=== PATIENT | female | born 1990 | race Caucasian/White ===

== ENCOUNTER 2016-07-07 22:43 | Emergency (ER) | payer SELFPAY ==
[2016-07-07] MEDS ORDERED: RINGERS SOLUTION,LACTATED 1,000 ML IV ONE (22:48)
--- NOTE | 2016-07-07 23:03 | ER Document Report ---
ED General - General Mode of Arrival: Ambulatory Information source: Patient TRAVEL OUTSIDE OF THE [place] IN LAST 30 DAYS: No - HPI Onset: Other Quality of pain: No pain Pain Level: 0 Similar symptoms previously: Yes Recently seen / treated by doctor: Yes <QUIN ROTH - Last Filed: 07/08/16 05:45> <KIEL GONZALEZ - Last Filed: 07/08/16 06:05> <PAKO SOUZA - Last Filed: 07/08/16 09:47> - General Chief Complaint: ETOH Abuse Stated Complaint: POSSIBLE ETOH Notes: Patient is a 26-year-old female that presents to the emergency department today secondary to heavy EtOH usage and Xanax prior to arrival. According to [facility] records, patient has been seen and evaluated in this ED for overdoses and EtOH usage in the past. Patient is somnolent but arousable. Patient states she had beer and 3 Xanax prior to arrival. Patient states she does not use IV drugs and denies any heroin usage. Patient denies taking any narcotic pain medication tonight. (QUIN ROTH) - Related Data Allergies/Adverse Reactions: No Known Allergies Allergy (Verified 08/23/14 14:53) Past Medical History - General Information source: Patient - Social History Smoking Status: Current Every Day Smoker Cigarette use (# per day): Yes Frequency of alcohol use: Heavy Drug Abuse: Prescription drugs - xanax Family History: Arthritis, DM, Other - lupus Renal/ Medical History: Reports: Hx Ovarian Cysts Psychiatric Medical History: Reports: Hx Anxiety, Hx Depression Past Surgical History: Reports: Hx Section - 2008 - Immunizations Immunizations up to date: Yes Hx Diphtheria, Pertussis, Tetanus Vaccination: Yes - nov 2008 <QUIN ROTH - Last Filed: 07/08/16 05:45> Review of Systems - Review of Systems Constitutional: No symptoms reported EENT: No symptoms reported Cardiovascular: No symptoms reported Respiratory: No symptoms reported Gastrointestinal: No symptoms reported Genitourinary: No symptoms reported Female Genitourinary: No symptoms reported Musculoskeletal: No symptoms reported Skin: No symptoms reported Hematologic/Lymphatic: No symptoms reported Neurological/Psychological: No symptoms reported -: Yes All other systems reviewed and negative <QUIN ROTH - Last Filed: 07/08/16 05:45> Physical Exam <QUIN ROTH - Last Filed: 07/08/16 05:45> <KIEL GONZALEZ - Last Filed: 07/08/16 06:05> <PAKO SOUZA - Last Filed: 07/08/16 09:47> - Vital signs Vitals: BP Pulse Ox 98/73 L 96 07/07/16 22:52 07/07/16 22:52 - Notes Notes: Physical Exam: General: Arouses to sternal rub. Intoxicated. Smells of EtOH. HEENT: Normocephalic. Atraumatic. PERRL. Extraocular movements intact. Oropharynx clear. Neck: Supple. Non-tender. Respiratory: No respiratory distress. Clear and equal breath sounds bilaterally. Cardiovascular: Regular rate and rhythm. Abdominal: Normal Inspection. Non-tender. No distension. Normal Bowel Sounds. Back: Non-tender. No deformity or step off. Extremities: Moves all four extremities. Upper extremities: Normal inspection. Normal ROM. Lower extremities: Normal inspection. No edema. Normal ROM. Neurological: Intoxicated. Cooperates with neuro exam, cranial nerves II-XII grossly intact bilaterally. Psychological: unable to assess Skin: Warm. Dry. Normal color. (IRAQUIN) Course - Laboratory Result Diagrams: 07/07/16 23:26 07/07/16 23:26 <QUIN ROTH - Last Filed: 07/08/16 05:45> - Laboratory Result Diagrams: 07/07/16 23:26 07/07/16 23:26 <KIEL GONZALEZ - Last Filed: 07/08/16 06:05> - Laboratory Result Diagrams: 07/07/16 23:26 07/07/16 23:26 <PAKO SOUZA - Last Filed: 07/08/16 09:47> - Re-evaluation Re-evalutation: 07/08/16 06:04 Patient presented to the emergency Department smelling of alcohol with alcohol intoxication. She said she drinks on a regular basis when necessary liquor also occasionally does the next. Says she is not attempting to hurt herself was aroused on examination throughout her entire visit IV fluids were given. She wakes up with arousal is sleeping. Negative acute labs otherwise. Patient will be signed out to Dr. alexa Burt pending repeat blood alcohol level disposition appropriate ride home. No family members are here present. (KIEL GONZALEZ) 07/08/16 09:46 Patient is awake at this time, she is alert oriented requesting phone call family members she is stable for discharge (PAKO SOUZA) - Vital Signs Vital signs: Temp Pulse Resp BP Pulse Ox 98.0 F 81 17 98/68 L 97 07/07/16 23:01 07/08/16 04:06 07/08/16 04:06 07/08/16 04:06 07/08/16 04:06 - Laboratory Laboratory results interpreted by me: 07/07/16 23:26 Sodium 149.3 H Chloride 109 H Salicylates < 1.0 L Acetaminophen < 10 L Serum Alcohol 342 H* Discharge <QUIN ROTH - Last Filed: 07/08/16 05:45> <KIEL GONZALEZ - Last Filed: 07/08/16 06:05> <PAKO SOUZA - Last Filed: 07/08/16 09:47> - Discharge Clinical Impression: alcoholintoxication
[2016-07-07 23:34] LABS: APPEARANCE,URINE CLEAR; BILIRUBIN,URINE NEGATIVE (NEGATIVE); GLUCOSE, URINE NEGATIVE (NEGATIVE); KETONES,URINE NEGATIVE (NEGATIVE); LEUKOCYTE ESTERASE,URINE NEGATIVE (NEGATIVE); NITRITE,URINE NEGATIVE (NEGATIVE); PROTEIN,URINE NEGATIVE (NEGATIVE); URINE SPECIFIC GRAVITY 1.005; UROBILINOGEN,URINE NEGATIVE mg/dL (<2.0)
[2016-07-07 23:38] LABS: ABSOLUTE BASOPHILS # (AUTO) 0.1 10^3/uL (0.0-0.2); ABSOLUTE EOSINOPHILS # (AUTO) 0.1 10^3/uL (0.0-0.6); ABSOLUTE MONOCYTES (AUTO) 0.4 10^3/uL (0.1-1.4); BASOPHILS % (AUTO) 0.7 % (0-2); EOSINOPHILS % (AUTO) 1.2 % (0-6); HEMATOCRIT 43.5 % (36.0-47.0); HEMOGLOBIN 14.8 g/dL (12.0-15.5); HGB HCT DIFFERENCE 0.9; LYMPHOCYTES % (AUTO) 30.8 % (13-45); MEAN CORPUSCULAR HEMOGLOBIN 32.8 pg (27.0-33.4); MEAN CORPUSCULAR HGB CONC 34.1 g/dL (32.0-36.0); MEAN CORPUSCULAR VOLUME 96 fl (80-97); MONOCYTES % (AUTO) 4.5 % (3-13); RED BLOOD COUNT 4.52 10^6/uL (3.72-5.28); RED CELL DISTRIBUTION WIDTH 13.2 % (11.5-14.0); SEGMENTED NEUTROPHILS % (AUTO) 62.8 % (42-78); WHITE BLOOD COUNT 9.6 10^3/uL (4.0-10.5)
[2016-07-07 23:53] LABS: URINE BARBITURATES SCREEN NEGATIVE; URINE METHADONE SCREEN NEGATIVE; URINE OPIATES LOW NEGATIVE; URINE PHENCYCLIDINE SCREEN NEGATIVE
[2016-07-07 23:58] LABS: ANION GAP 15 (5-19); BLOOD UREA NITROGEN 10 mg/dL (7-20); CALCIUM 9.3 mg/dL (8.4-10.2); CARBON DIOXIDE 25 mmol/L (22-30); CHLORIDE 109 mmol/L (98-107); CREATININE RESULT 0.57 mg/dL (0.52-1.25); GLUCOSE 105 mg/dL (75-110); POTASSIUM 4.2 mmol/L (3.6-5.0); SODIUM 149.3 mmol/L (137-145)
[2016-07-08 00:09] LABS: ALCOHOL 342 mg/dL (NONE DETECTED)
[2016-07-08 04:07] VITALS: BP 98/68
--- NOTE | 2016-07-08 09:14 | EKG REPORT ---
SEVERITY:- OTHERWISE NORMAL ECG - SINUS RHYTHM BORDERLINE RIGHT AXIS DEVIATION : Confirmed by: Eric Ba MD 08-Jul-2016 09:14:00
== END 2016-07-08 10:16 | disposition home or self-care (01) ==
LOC: ER 22:43
DX: F10.129 Alcohol abuse with intoxication, unspecified (principal); R40.0 Somnolence; F17.210 Nicotine dependence, cigarettes, uncomplicated
CPT/HCPCS: 93005; 99281; 51701; 36415; 80307 ×4; 85025; 81025; 80048; 81001; 93010; J7120

== ENCOUNTER 2016-07-26 22:24 | Emergency (ER) | payer OTHER ==
[2016-07-26] MEDS ORDERED: LIDOCAINE 1% INJ-PF (10 MG/ML) 30 ML SDV INJ ONE (22:29)
[2016-07-26] MEDS ORDERED: DIPH/PERTUSS(ACELL)/TETANUS VAC/PF 0.5 ML SYR (>=10YO) IM ONE (22:34)
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
[2016-07-26] MEDS ORDERED: HYDROCODONE/ACETAMINOPHEN 5-325 MG TABLET PO ONE (23:00)
--- NOTE | 2016-07-26 23:38 | RADIOLOGY REPORT (SQ) ---
EXAM DESCRIPTION: RIBS RIGHT W/PA CHEST COMPLETED DATE/TIME: 07/26/2016 11:14 pm REASON FOR STUDY: trauma COMPARISON: None. TECHNIQUE: Frontal view of the chest and additional views of the right ribs acquired. NUMBER OF VIEWS: Three view. LIMITATIONS: None. FINDINGS: FRONTAL CXR: No pneumothorax. No pleural effusion. No atelectasis or infiltrates. RIBS: No displaced rib fractures. No lytic or blastic bony lesions. OTHER: No other significant finding. IMPRESSION: NO PNEUMOTHORAX. NO DISPLACED RIB FRACTURES. COMMENT: SITE OF TRAUMA/COMPLAINT MARKED/STAMP COMPLETED: No TECHNICAL DOCUMENTATION: JOB ID: [id number] [employer]- All Rights Reserved
--- NOTE | 2016-07-26 23:40 | RADIOLOGY REPORT (SQ) ---
EXAM DESCRIPTION: CT HEAD WITHOUT COMPLETED DATE/TIME: 07/26/2016 11:25 pm REASON FOR STUDY: trauma COMPARISON: None. TECHNIQUE: Axial images acquired through the brain without intravenous contrast. Images reviewed wi th bone, brain and subdural windows. Images stored on PACS. All CT scanners at this facility use dose modulation, iterative reconstruction, and/or weight based d osing when appropriate to reduce radiation dose to as low as reasonably achievable (ALARA). [facility]: Dose Right [facility]: CareDose [facility]: Dose Right [facility]: Teradose 4D [facility]: [employer] RADIATION DOSE: 64.61 mGy. LIMITATIONS: None. FINDINGS: VENTRICLES: Normal size and contour. CEREBRUM: No masses. No hemorrhage. No midline shift. Normal martin/white matter differentiation. N o evidence for acute infarction. CEREBELLUM: No masses. No hemorrhage. No alteration of density. No evidence for acute infarction. EXTRAAXIAL SPACES: No fluid collections. No masses. ORBITS AND GLOBE: No intra- or extraconal masses. Normal contour of globe without masses. CALVARIUM: No fracture. PARANASAL SINUSES: No fluid or mucosal thickening. SOFT TISSUES: No mass or hematoma. OTHER: No other significant finding. IMPRESSION: No acute intracranial finding. TECHNICAL DOCUMENTATION: JOB ID: [id number] Quality ID # [id number]: Final reports with documentation of one or more dose reduction techniques (e.g., Au tomated exposure control, adjustment of the mA and/or kV according to patient size, use of iterative reconstruction technique) 2010 [employer]- All Rights Reserved
--- NOTE | 2016-07-26 23:46 | RADIOLOGY REPORT (SQ) ---
EXAM DESCRIPTION: CT FACIAL AREA WITHOUT COMPLETED DATE/TIME: 07/26/2016 11:25 pm REASON FOR STUDY: trauma COMPARISON: None. TECHNIQUE: Noncontrasted images through the facial bones and orbits windowed for bone and soft tissu e. Additional coronal and sagittal reconstructed images reviewed. All images stored on PACS. All CT scanners at this facility use dose modulation, iterative reconstruction, and/or weight based d osing when appropriate to reduce radiation dose to as low as reasonably achievable (ALARA). [facility]: Dose Right [facility]: CareDose [facility]: Dose Right [facility]: Teradose 4D [facility]: [employer] RADIATION DOSE: 30.40 mGy. LIMITATIONS: None. FINDINGS: FACIAL BONES: No fracture or bone lesion. ORBITS: Intact. No fracture. Symmetric intact globes and retroorbital soft tissues. PARANASAL SINUSES: Clear. No significant mucosal thickening, mass or fluid. No nasal polyps. Maxill everett sinus outlets are patent. SOFT TISSUES: No mass or edema. INFERIOR BRAIN: Limited view. No acute findings. OTHER: No other significant finding. IMPRESSION: No fracture. TECHNICAL DOCUMENTATION: JOB ID: [id number] Quality ID # [id number]: Final reports with documentation of one or more dose reduction techniques (e.g., Au tomated exposure control, adjustment of the mA and/or kV according to patient size, use of iterative reconstruction technique) 2010 [employer] All Rights Reserved
--- NOTE | 2016-07-26 23:48 | RADIOLOGY REPORT (SQ) ---
EXAM DESCRIPTION: CT CERVICAL SPINE WITHOUT COMPLETED DATE/TIME: 07/26/2016 11:25 pm REASON FOR STUDY: trauma COMPARISON: None. TECHNIQUE: Axial images acquired through the cervical spine without intravenous contrast. Images re viewed with lung, soft tissue and bone windows. Reconstructed coronal and sagittal MPR images review ed. Images stored on PACS. All CT scanners at this facility use dose modulation, iterative reconstruction, and/or weight based d osing when appropriate to reduce radiation dose to as low as reasonably achievable (ALARA). [facility]: Dose Right [facility]: CareDose [facility]: Dose Right [facility]: Teradose 4D [facility]: [employer] RADIATION DOSE: 9.84 mGy. LIMITATIONS: None. FINDINGS: ALIGNMENT: Anatomic. MINERALIZATION: Normal. VERTEBRAL BODIES: No fractures or dislocation. DISCS: No significant disc disease. FACETS, LATERAL MASSES, POSTERIOR ELEMENTS: No fractures. No dislocation. No acute findings. HARDWARE: None in the spine. VISUALIZED RIBS: No fractures. LUNG APICES AND SOFT TISSUES: No significant or acute findings. OTHER: No other significant finding. IMPRESSION: NO ACUTE FINDINGS IN THE CERVICAL SPINE. TECHNICAL DOCUMENTATION: JOB ID: [id number] Quality ID # [id number]: Final reports with documentation of one or more dose reduction techniques (e.g., Au tomated exposure control, adjustment of the mA and/or kV according to patient size, use of iterative reconstruction technique) 2010 [employer]- All Rights Reserved
[2016-07-26] MEDS ORDERED: HYDROCODONE/ACETAMINOPHEN 5-325 MG 6 TAB/DSPK PO PRN (23:58)
[2016-07-27 00:42] VITALS: BP 116/75
== END 2016-07-27 00:30 | disposition home or self-care (01) ==
LOC: ER 22:24
PROC: 0CQ0XZZ Repair Upper Lip, External Approach (ICD-10-PCS; principal; 2016-07-26)
DX: S01.511A Laceration without foreign body of lip, initial encounter (principal); V03.90XA Pedestrian on foot injured in collision with car, pick-up truck or van, unspecified whether traffic or nontraffic accident, initial encounter; Y93.01 Activity, walking, marching and hiking; R55 Syncope and collapse; R51 Headache; R22.0 Localized swelling, mass and lump, head; M54.2 Cervicalgia; R07.81 Pleurodynia; Z88.8 Allergy status to other drugs, medicaments and biological substances
CPT/HCPCS: 99284; 90471; 71101; 70450; 70486; 72125; 90715; 12011; J3490

== ENCOUNTER 2016-10-10 23:46 | Emergency (ER) | payer SELFPAY | END 2016-10-11 00:05 | disposition left against medical advice (07) | LOC: ER 23:46 | DX: Z53.21 Procedure and treatment not carried out due to patient leaving prior to being seen by health care provider (principal) ==

== ENCOUNTER 2016-10-27 01:20 | Emergency (ER) | payer SELFPAY ==
[2016-10-27 01:31] VITALS: BP 117/76
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
== END 2016-10-27 02:10 | disposition home or self-care (01) ==
LOC: ER 01:20
DX: S89.91XA Unspecified injury of right lower leg, initial encounter (principal); S30.811A Abrasion of abdominal wall, initial encounter; S40.811A Abrasion of right upper arm, initial encounter; R59.1 Generalized enlarged lymph nodes; J02.9 Acute pharyngitis, unspecified; V87.8XXA Person injured in other specified noncollision transport accidents involving motor vehicle (traffic), initial encounter
CPT/HCPCS: 99282

== ENCOUNTER 2016-12-13 19:40 | Emergency (ER) | payer SELFPAY ==
[2016-12-13] MEDS ORDERED: DIPHENHYDRAMINE HCL 50 MG/ML VIAL IM ONE (20:21)
[2016-12-13] MEDS ORDERED: HALOPERIDOL LACTATE INJ 5 MG/1 ML VIAL IM ONE (20:21)
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
== END 2016-12-13 21:39 ==
LOC: ER 19:40
DX: S00.01XA Abrasion of scalp, initial encounter (principal); Y35.893A Legal intervention involving other specified means, suspect injured, initial encounter; Y93.89 Activity, other specified; F17.200 Nicotine dependence, unspecified, uncomplicated; Z88.8 Allergy status to other drugs, medicaments and biological substances
CPT/HCPCS: 99283

== ENCOUNTER 2017-01-18 02:01 | Emergency (ER) | payer SELFPAY ==
[2017-01-18] MEDS ORDERED: ZIPRASIDONE MESYLATE INJ/PF 20 MG SDV IM ONE (02:11)
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
--- NOTE | 2017-01-18 03:08 | RADIOLOGY REPORT (SQ) ---
EXAM DESCRIPTION: CT HEAD WITHOUT CLINICAL HISTORY: Head Trauma COMPARISON: 07/26/2016 TECHNIQUE: Axial CT of the head obtained from the skull apex to the skull base without contrast. FINDINGS: No acute intracranial hemorrhage identified. No mass, mass effect, shift of the midline, abnormal extra-axial fluid collection or CT evidence of acute ischemic change identified. The ventricular system is unremarkable. No acute abnormalities of the supratentorial white matter, basal ganglia, cerebellum, or brainstem. The visualized paranasal sinuses and the mastoids are clear. Contusion in the left frontal scalp subcutaneous soft tissues. No skull fracture identified. Visualized orbits and globes are unremarkable. DLP: 1083.99 mGy-cm IMPRESSION: 1. No acute intracranial abnormality identified. This exam was performed according to our departmental dose-optimization program, which includes automated exposure control, adjustment of the mA and/or kV according to patient size and/or use of iterative reconstruction technique.
== END 2017-01-18 04:30 ==
LOC: ER 02:01
DX: S09.90XA Unspecified injury of head, initial encounter (principal); F91.9 Conduct disorder, unspecified; Z79.899 Other long term (current) drug therapy; W22.8XXA Striking against or struck by other objects, initial encounter
CPT/HCPCS: 99285; 96372; 70450; J3486

== ENCOUNTER 2017-08-18 00:14 | Emergency (ER) | payer SELFPAY ==
--- NOTE | 2017-08-18 00:35 | ER Document Report ---
ED Substance Abuse / Acc. OD - General Chief Complaint: Drug Abuse Stated Complaint: NAUSEA Time Seen by Provider: 08/18/17 00:27 Notes: The patient is a 27-year-old female, polysubstance abuser, presents by EMS after she was using methamphetamines and alcohol. According to EMS, she was passed out when the call was made, but was awake when EMS arrived. Patient is having some nausea but denies any other complaints. Patient admits to drinking alcohol tonight and using methamphetamine. She denies suicidal ideation, homicidal ideation, abdominal pain, fevers, back pain or head injury. TRAVEL OUTSIDE OF THE [place] IN LAST 30 DAYS: No - Related Data Allergies/Adverse Reactions: ondansetron [From Zofran (as hydrochloride)] Allergy (Verified 07/26/16 22:44) Past Medical History - General Information source: Patient, Emergency Med Personnel - Social History Smoking Status: Unknown if Ever Smoked Frequency of alcohol use: Heavy Drug Abuse: Methamphetamine Family History: Arthritis, DM, Other - lupus Renal/ Medical History: Reports: Hx Ovarian Cysts. Denies: Hx Peritoneal Dialysis Psychiatric Medical History: Reports: Hx Anxiety, Hx Depression Past Surgical History: Reports: Hx Section - 2008 - Immunizations Immunizations up to date: Yes Hx Diphtheria, Pertussis, Tetanus Vaccination: Yes - nov 2008 Review of Systems - Review of Systems Notes: REVIEW OF SYSTEMS: CONSTITUTIONAL: -fevers, -chills EENT: -eye pain, -difficulty swallowing, -nasal congestion CARDIOVASCULAR: -chest pain, -syncope. RESPIRATORY: -cough, -SOB GASTROINTESTINAL: -abdominal pain, -nausea, -vomiting, -diarrhea GENITOURINARY: -dysuria, -hematuria MUSCULOSKELETAL: -back pain, -neck pain SKIN: -rash or skin lesions. HEMATOLOGIC: -easy bruising or bleeding. LYMPHATIC: -swollen, enlarged glands. NEUROLOGICAL: -altered mental status, -headache, -neurologic symptoms PSYCHIATRIC: -anxiety, -depression, +substance abuse, +ETOH abuse ALL OTHER SYSTEMS REVIEWED AND NEGATIVE. Physical Exam - Notes Notes: PHYSICAL EXAMINATION: GENERAL: Well-appearing, well-nourished and in no acute distress. HEAD: Atraumatic, normocephalic. EYES: Pupils equal round and reactive to light, extraocular movements intact, sclera anicteric, conjunctiva are normal. ENT: nares patent, oropharynx clear without exudates. Moist mucous membranes. NECK: Normal range of motion, supple without lymphadenopathy LUNGS: Breath sounds clear to auscultation bilaterally and equal. No wheezes rales or rhonchi. HEART: Regular rate and rhythm without murmurs ABDOMEN: Soft, nontender, normoactive bowel sounds. No guarding, no rebound. No masses appreciated. EXTREMITIES: Normal range of motion, no pitting or edema. No cyanosis. NEUROLOGICAL: Cranial nerves grossly intact. Normal speech, normal gait. Normal sensory and motor exams. PSYCH: Angry mood. SKIN: Warm, Dry, normal turgor, no rashes or lesions noted. Course - Re-evaluation Re-evalutation: Patient's mental status is back to baseline. She admits to using methamphetamine and drinking large amount of alcohol tonight. Patient's Accu- Chek was 83 by EMS. Instructed her she can be discharged once she has a ride home. Provided her with drug counseling information. Discharge - Discharge Clinical Impression: Methamphetamine abuse Alcohol intoxication Qualifiers: Complication of substance-induced condition: uncomplicated Qualified Code(s): F10.920 - Alcohol use, unspecified with intoxication, uncomplicated Condition: Stable Additional Instructions: ACUTE ALCOHOL INTOXICATION and ALCOHOL ABUSE: Your evaluation revealed very high levels of alcohol. You can from drinking a large amount of alcohol rapidly! Further, there's the risk of falls , traffic accidents, and fights. A high portion (about 50 percent) of the serious injuries seen in hospital emergency rooms are caused by alcohol. Alcohol overdosage is usually due to an underlying emotional or psychiatric problem. You may benefit from counselling. If "binge" drinking is an ongoing problem for you, or if you drink ANY AMOUNT of alcohol EVERY day, you most likely have a tendency to alcoholism. You should avoid alcohol totally. We can refer you for treatment. Persons with alcohol problems are often also prone to other addictions -- you should discuss any use of medications or drugs with the doctor. You should be watched at home for the next several hours by someone who has not been drinking. Get extra fluids for the next 24 hours. Call the doctor if there is repeated vomiting, increasing headache, decreasing level of alertness, or any other worsening. CHRONIC ALCOHOLISM and ALCOHOL ABUSE: Your evaluation reveals evidence of chronic alcoholism, an addiction to alcohol. The tendency to alcoholism may be inherited. Chronic use of alcohol weakens muscles, causes fatty deposits in the liver , damages the stomach, makes you more prone to infections, and can cause defects in unborn children. In the long run, brain atrophy and cirrhosis of the liver result. You are also at greater risk for certain types of cancer, such as cancer of the mouth, throat, stomach, and liver. Counselling services are available to help you. In-hospital treatment programs often help. Support groups such as Alcoholics Anonymous can be very useful in beating this addiction. Your physician can make a referral for you. As alcoholics often are prone to other addictions, you should discuss your use of any other medications with the doctor. AMPHETAMINE / METHAMPHETAMINE ABUSE: Amphetamines are addicting stimulants. Amphetamines overstimulate the nervous system and give a false feeling of power and mastery. These drugs may be obtained as prescription pills for weight loss, narcolepsy, or attention- deficit disorder. More often they're bought as an illegal street drug, methamphetamine (crank, crystal, speed). Using amphetamines repeatedly can lead to serious medical problems including malnutrition, severe depression, and paranoia. It can take increasing amounts to feel good. Eventually, there will be a "burn out." When you go off amphetamines there is a period of depression that may last for weeks or even months. High doses of amphetamines can cause seizures, confusion, hallucinations, delusions, high blood pressure, muscle damage, heart damage, or sudden . Many times these deadly complications occur even with "normal" doses. Injection of amphetamines is risky for developing abscesses, endocarditis ( heart infection), pneumonia, and AIDS. Withdrawal from amphetamines often causes anxiety, depression, and drug cravings. Some users become paranoid and psychotic. There may be cramps, nausea , and vomiting. Many treatment programs are available, but you must make the decision to quit. Medication can be prescribed to control the symptoms of amphetamine toxicity (beta blockers or benzodiazepines). Withdrawal symptoms may require tranquilizers. OVERDOSE / INGESTION: You have taken more medication than you should have. After your evaluation and care, it is felt that your overdose is not likely to be harmful or of any significant consequences to you and you are being discharged. In the future, you should be careful not to take more medications than what is prescribed for you. Although your overdose does not seem to be of any danger to you at this time, if you develop any unusual or unexpected symptoms after your discharge, you should return to the Emergency Department immediately for re-evaluation. INSTRUCTIONS FOR HOME CARE FOLLOWING DRUG OVERDOSAGE: The doctor feels it's safe for you to go home. You will need to be observed. If charcoal and a laxative was given to you, expect some loose black stools soon. Take no medications unless approved by a physician, including alcohol. If drowsy, lie on your stomach or side for sleeping to avoid aspiration if vomiting occurs. Take only liquids by mouth until there is no more nausea. FOR THE OBSERVER: Observe the patient for the next 24 hours and call or go to the hospital if any of the following are noted: prolonged or repeated vomiting, difficulty in arousing, convulsions (seizures or fits), fever, persistent cough, breathing that is too slow or too rapid, or confused or bizarre behavior. If a counselling visit has been arranged, make sure the patient attends. Call the physician or poison control if you have questions. FOLLOW-UP CARE: If you have been referred to a physician for follow-up care, call the physician s office for an appointment as you were instructed or within the next two days. If you experience worsening or a significant change in your symptoms, notify the physician immediately or return to the Emergency Department at any time for re-evaluation. Forms: Elevated Blood Pressure Referrals: [facility] [Outside] - Follow up as needed
[2017-08-18 05:53] VITALS: BP 103/66
== END 2017-08-18 05:52 | disposition home or self-care (01) ==
LOC: ER 00:14
DX: F15.10 Other stimulant abuse, uncomplicated (principal); F10.920 Alcohol use, unspecified with intoxication, uncomplicated; R11.0 Nausea
CPT/HCPCS: 99284

== ENCOUNTER 2018-07-11 13:22 | Emergency (ER) | payer SELFPAY ==
--- NOTE | 2018-07-11 14:44 | ER Document Report ---
ED Medical Screen (RME) - General Chief Complaint: Abdominal Pain Stated Complaint: ABDOMINAL PAIN Time Seen by Provider: 07/11/18 14:41 Mode of Arrival: Ambulatory Information source: Patient Notes: Patient presents complaining of left-sided abdominal pain that started to the left upper quadrant radiates to the left lower quadrant and now goes across the lower pelvic area. Patient does report nausea vomiting and diarrhea. Patient does report some dysuria symptoms as well as vaginal bleeding. Patient states she recently had a positive home test as well. I have greeted and performed a rapid initial assessment of this patient. A comprehensive ED assessment and evaluation of the patient, analysis of test results and completion of the medical decision making process will be conducted by additional ED providers. TRAVEL OUTSIDE OF THE [place] IN LAST 30 DAYS: No - Related Data Allergies/Adverse Reactions: bee venom protein (honey bee) Allergy (Verified 07/11/18 13:41) Sulfa (Sulfonamide Antibiotics) Allergy (Verified 07/11/18 14:42) Past Medical History - Social History Chew tobacco use (# tins/day): No Frequency of alcohol use: None Drug Abuse: None Renal/ Medical History: Reports: Hx Ovarian Cysts. Denies: Hx Peritoneal Dialysis Psychiatric Medical History: Reports: Hx Anxiety, Hx Depression Past Surgical History: Reports: Hx Section - 2008 - Immunizations Immunizations up to date: Yes Hx Diphtheria, Pertussis, Tetanus Vaccination: Yes - nov 2008 Physical Exam - Vital signs Vitals: Temp Pulse Resp BP Pulse Ox 98.1 F 76 18 112/67 100 07/11/18 14:10 07/11/18 14:10 07/11/18 14:10 07/11/18 14:10 07/11/18 14:10 - Abdominal Tenderness: Tender - Lower pelvic Course - Vital Signs Vital signs: Temp Pulse Resp BP Pulse Ox 98.1 F 76 18 112/67 100 07/11/18 14:10 07/11/18 14:10 07/11/18 14:10 07/11/18 14:10 07/11/18 14:10
[2018-07-11 15:31] LABS: APPEARANCE,URINE SLIGHTLY-CLOUDY; BILIRUBIN,URINE NEGATIVE (NEGATIVE); COLOR,URINE YELLOW; GLUCOSE, URINE NEGATIVE (NEGATIVE); KETONES,URINE TRACE mg/dL (NEGATIVE); LEUKOCYTE ESTERASE,URINE NEGATIVE (NEGATIVE); NITRITE,URINE NEGATIVE (NEGATIVE); PROTEIN,URINE NEGATIVE (NEGATIVE); URINE SPECIFIC GRAVITY 1.011; UROBILINOGEN,URINE NEGATIVE mg/dL (<2.0)
[2018-07-11 15:33] LABS: ABSOLUTE LYMPHOCYTES (AUTO) 1.3 10^3/uL (0.5-4.7); ABSOLUTE MONOCYTES (AUTO) 0.4 10^3/uL (0.1-1.4); ABSOLUTE NEUT (AUTO) 6.9 10^3/uL (1.7-8.2); BASOPHILS % (AUTO) 0.5 % (0-2); EOSINOPHILS % (AUTO) 0.4 % (0-6); HEMATOCRIT 38.2 % (36.0-47.0); HEMOGLOBIN 12.6 g/dL (12.0-15.5); LYMPHOCYTES % (AUTO) 15.4 % (13-45); MEAN CORPUSCULAR HEMOGLOBIN 28.6 pg (27.0-33.4); MEAN CORPUSCULAR HGB CONC 33.1 g/dL (32.0-36.0); MEAN CORPUSCULAR VOLUME 86 fl (80-97); MONOCYTES % (AUTO) 5.1 % (3-13); PLATELET COUNT 283 10^3/uL (150-450); RED BLOOD COUNT 4.42 10^6/uL (3.72-5.28); RED CELL DISTRIBUTION WIDTH 16.1 % (11.5-14.0); SEGMENTED NEUTROPHILS % (AUTO) 78.6 % (42-78); TOTAL CELLS COUNTED % (AUTO) 100 %; WHITE BLOOD COUNT 8.8 10^3/uL (4.0-10.5)
[2018-07-11 15:54] LABS: ALANINE AMINOTRANSFERASE 23 U/L (9-52); ALBUMIN 4.4 g/dL (3.5-5.0); ALKALINE PHOSPHATASE 115 U/L (38-126); ANION GAP 11 (5-19); ASPARTATE AMINO TRANSFERASE 23 U/L (14-36); BILIRUBIN,DIRECT 0.2 mg/dL (0.0-0.4); BILIRUBIN,TOTAL 0.5 mg/dL (0.2-1.3); BLOOD UREA NITROGEN 6 mg/dL (7-20); CALCIUM 9.9 mg/dL (8.4-10.2); CARBON DIOXIDE 25 mmol/L (22-30); CHLORIDE 102 mmol/L (98-107); GLUCOSE 96 mg/dL (75-110); POTASSIUM 4.4 mmol/L (3.6-5.0); SODIUM 138.1 mmol/L (137-145); TOTAL PROTEIN 7.8 g/dL (6.3-8.2)
[2018-07-11] MEDS ORDERED: ACETAMINOPHEN 325 MG TABLET PO ONE (16:22)
--- NOTE | 2018-07-11 18:21 | RADIOLOGY REPORT (SQ) ---
EXAM DESCRIPTION: U/S OB TRANSVAGINAL W/O DOP COMPLETED DATE/TIME: 07/11/2018 6:06 pm REASON FOR STUDY: pelvic pain COMPARISON: None. TECHNIQUE: Transvaginal static and realtime grayscale images acquired of the pelvis. Additional demetra cted spectral and color Doppler images recorded. All images stored on PACs. [facility] CLINICAL DATES: LMP unknown LIMITATIONS: None. FINDINGS: There is no identifiable intrauterine gestation. UTERUS: No masses or anomalies. 8.7 x 4.5 x 5.5 cm. Endometrium is prominent. CERVICAL LENGTH: 2.4 cm. Closed. RIGHT ADNEXA: Normal ovary with normal vascular flow. 2.5 x 2 x 2 cm. No adnexal free fluid. No adnexal masses. LEFT ADNEXA: Normal ovary with normal vascular flow. 3.2 x 2.4 x 3.4 cm. There is a definable compl ex area in the left ovary that measures 17 x 21 x 16 mm. No adnexal free fluid. No adnexal masses. FREE FLUID: None. OTHER: No other significant finding. IMPRESSION: There is no intrauterine gestation. Follow-up as clinically indicated. There is a small complex mass associated with the left ovary. Nonspecific finding. May represent an involuting cyst. TECHNICAL DOCUMENTATION: JOB ID: [id number] [employer]- All Rights Reserved rev Reading location - IP/workstation name: [email or web address]
[2018-07-11 18:29] LABS: CHLAM PCR NOT DETECTED (NOT DETECT)
[2018-07-11 18:47] LABS: GON PCR NOT DETECTED (NOT DETECT)
--- NOTE | 2018-07-11 19:32 | ER Document Report ---
ED General - General Chief Complaint: Abdominal Pain Stated Complaint: ABDOMINAL PAIN Time Seen by Provider: 07/11/18 14:41 Mode of Arrival: Ambulatory TRAVEL OUTSIDE OF THE [place] IN LAST 30 DAYS: No - HPI Notes: Patient is a 28-year-old female, G2, P1 who presents to the emergency department for evaluation of left lower quadrant pain. It started earlier today. She is had nausea with multiple episodes of emesis. Normal bowel movements. She states that she took a home test last week and it was positive. She has not called her OB for an appointment. She states her last menstrual period Was approximately 2 months ago. She describes her pain is sharp and stabbing, nothing seems to make it better or worse. Normal appetite. Since arriving here she states she started having some dark brown vaginal bleeding. It was much crt than normal menstruation And has resolved by the time of my evaluation. - Related Data Allergies/Adverse Reactions: bee venom protein (honey bee) Allergy (Verified 07/11/18 13:41) Sulfa (Sulfonamide Antibiotics) Allergy (Verified 07/11/18 14:42) Past Medical History - General Information source: Patient - Social History Smoking Status: Current Every Day Smoker Chew tobacco use (# tins/day): No Frequency of alcohol use: None Drug Abuse: None Family History: Arthritis, DM, Other - lupus Patient has suicidal ideation: No Patient has homicidal ideation: No Renal/ Medical History: Reports: Hx Ovarian Cysts. Denies: Hx Peritoneal Dialysis Psychiatric Medical History: Reports: Hx Anxiety, Hx Depression Past Surgical History: Reports: Hx Section - 2008 - Immunizations Immunizations up to date: Yes Hx Diphtheria, Pertussis, Tetanus Vaccination: Yes - nov 2008 Review of Systems - Review of Systems Constitutional: No symptoms reported EENT: No symptoms reported Cardiovascular: No symptoms reported Respiratory: No symptoms reported Gastrointestinal: See HPI Genitourinary: No symptoms reported Female Genitourinary: See HPI Musculoskeletal: No symptoms reported Skin: No symptoms reported Neurological/Psychological: No symptoms reported Physical Exam - Vital signs Vitals: Temp Pulse Resp BP Pulse Ox 98.1 F 76 18 112/67 100 07/11/18 14:10 07/11/18 14:10 07/11/18 14:10 07/11/18 14:10 07/11/18 14:10 - Notes Notes: Vital signs reviewed, please refer to chart. Head is normocephalic, atraumatic. Pupils equal round, reactive to light. Neck is supple without meningismus. Heart is regular rate and rhythm. Lungs are clear to auscultation bilaterally. Abdomen is soft, nontender, normoactive bowel sounds throughout. Extremities without cyanosis, clubbing. Posterior calves are nontender. Peripheral pulses are equal. Skin is warm and dry. Patient is awake, alert, neurological exam is nonfocal. Course - Re-evaluation Re-evalutation: 07/11/18 19:29 Patient presented to the emergency department for evaluation. Laboratory investigations did reveal a , but her quant was just over 250. Certainly she is not 2 months at this time. I expanded the patient that multiple etiologies could be responsible for her pain as well as her test findings. She certainly could have a very early intrauterine , could be having a miscarriage, or certainly could still have an ectopic . She does need repeat laboratory investigations as well as repeat ultrasounds. She voiced understanding to this. She is told to follow complete pelvic rest instructions. She is to follow-up with gynecology, I will go ahead and refer her to our OB on-call. She is to return to the emergency department with worsening or new concerning symptoms of any sort. - Vital Signs Vital signs: Temp Pulse Resp BP Pulse Ox 98.1 F 76 18 112/67 100 07/11/18 14:10 07/11/18 14:10 07/11/18 14:10 07/11/18 14:10 07/11/18 14:10 - Laboratory Result Diagrams: 07/11/18 15:03 07/11/18 15:03 Laboratory results interpreted by me: 07/11/18 07/11/18 07/11/18 15:03 15:03 15:03 RDW 16.1 H Seg Neutrophils % 78.6 H BUN 6 L Serum HCG, Qual POSITIVE H Beta HCG, Quant Urine Ketones Urine Blood 07/11/18 07/11/18 15:03 15:03 RDW Seg Neutrophils % BUN Serum HCG, Qual Beta HCG, Quant 255.38 H Urine Ketones TRACE H Urine Blood LARGE H Discharge - Discharge Clinical Impression: Vaginal bleeding during , Left lower quadrant abdominal pain affecting Condition: Stable Disposition: HOME, SELF-CARE Instructions: Abdominal Pain ([facility]), Vaginal Bleeding ([facility]) Additional Instructions: Your test here was positive, but no was seen on ultrasound. You will need to have repeat lab work in 48 hours, and should have a repeat ultrasound next week. Follow-up with our on-call OB, or the publication editor of your choice. Complete pelvic rest as instructed. Return to the emergency department with worsening or new concerning symptoms of any sort. Forms: Follow-Up Laboratory Testing
[2018-07-11 19:52] VITALS: BP 110/65
== END 2018-07-11 20:09 | disposition home or self-care (01) ==
LOC: ER 13:22
DX: O20.9 Hemorrhage in early pregnancy, unspecified (principal); R10.32 Left lower quadrant pain; R11.0 Nausea; Z3A.01 Less than 8 weeks gestation of pregnancy; Z88.2 Allergy status to sulfonamides
CPT/HCPCS: 36415; 76817; 80053; 81001; 84702; 84703; 85025; 87491; 87591; 99284

== ENCOUNTER → 2018-07-13 | Outpatient (CLI) | payer SELFPAY | LOC: LC 20:58 | PROVIDERS: ATTEND Obstetrics & Gynecology | DX: Z53.9 Procedure and treatment not carried out, unspecified reason (principal) ==

== ENCOUNTER → 2018-07-13 | Outpatient (CLI) | payer SELFPAY | LOC: LAB 21:16 | PROVIDERS: ATTEND Obstetrics & Gynecology | DX: O46.90 Antepartum hemorrhage, unspecified, unspecified trimester (principal); Z3A.00 Weeks of gestation of pregnancy not specified | CPT/HCPCS: 36415; 84702 ==

== ENCOUNTER 2019-03-17 11:42 | Emergency (ER) | payer SELFPAY ==
[2019-03-17] MEDS ORDERED: METHOCARBAMOL 500 MG TABLET PO ONE (12:48)
[2019-03-17] MEDS ORDERED: KETOROLAC TROMETHAMINE INJ/PF 30 MG/1 ML SDV IM ONE (12:48)
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
--- NOTE | 2019-03-17 14:57 | RADIOLOGY REPORT (SQ) ---
EXAM DESCRIPTION: CERV SP 4 OR 5 VIEWS COMPLETED DATE/TIME: 03/17/2019 2:16 pm REASON FOR STUDY: neck pain, fall 14 days ago COMPARISON: CT cervical spine 07/26/2016 NUMBER OF VIEWS: Five views. TECHNIQUE: AP, lateral, obliques and odontoid radiographic images acquired of the cervical spine. LIMITATIONS: None. FINDINGS: MINERALIZATION: Normal. ALIGNMENT: Straightening of cervical lordosis likely from muscle spasm. VERTEBRAE: Vertebral bodies of normal height. DISCS: No significant osteophytes or sclerosis. Disc height maintained. FORAMINA: No osteophytes or foraminal narrowing. LATERAL AND POSTERIOR ELEMENTS: Facets, lateral masses and spinous processes without significant find ings. HARDWARE: None in the spine. SOFT TISSUES: No prevertebral soft tissue swelling. Lung apices are clear. No neck calcifications OTHER: No other significant finding. IMPRESSION: Straightening of cervical curvature likely due to muscle spasm. No acute fracture or malalignment by plain film. No significant foraminal stenosis by plain film TECHNICAL DOCUMENTATION: JOB ID: [id number] [email or web address]- All Rights Reserved Reading location - IP/workstation name: [email or web address]
[2019-03-17 15:49] VITALS: BP 123/63
== END 2019-03-17 15:50 | disposition home or self-care (01) ==
LOC: ER 11:42
DX: O99.89 Other specified diseases and conditions complicating pregnancy, childbirth and the puerperium (principal); S16.1XXA Strain of muscle, fascia and tendon at neck level, initial encounter; X58.XXXA Exposure to other specified factors, initial encounter; Z3A.00 Weeks of gestation of pregnancy not specified
CPT/HCPCS: 99283; 96372; 72050; J1885

== ENCOUNTER 2019-05-26 22:10 | Emergency (ER) | payer SELFPAY ==
[2019-05-26] MEDS ORDERED: PROMETHAZINE HCL 25 MG TABLET PO ONE (22:44)
[2019-05-26] MEDS ORDERED: OXYCODONE-ACETAMINOPHEN 5-325 MG TABLET PO ONE (22:44)
[2019-05-26] MEDS ORDERED: AMOXICILLIN TRIHYDRATE 500 MG CAPSULE PO ONE (22:45)
--- NOTE | 2019-05-26 22:48 | ER Document Report ---
HPI - HPI Time Seen by Provider: 05/26/19 22:36 Pain Level: 4 Context: Patient is a 29-year-old female that comes to the emergency department for chief complaint of left-sided facial pain, dental pain, and she states that she has a known dental fracture or a filling came out about 2 weeks ago. Symptoms have been worsening over the past several days. She denies difficulty breathing or swallowing, throat pain, neck pain, fever, or any other complaints. She denies . She does not have a dentist. - REPRODUCTIVE Reproductive: REPORTS: : Past Medical History - General Information source: Patient - Social History Smoking Status: Current Every Day Smoker Drug Abuse: None Lives with: Family Family History: Arthritis, DM, Other - lupus Patient has suicidal ideation: No Patient has homicidal ideation: No Renal/ Medical History: Reports: Hx Ovarian Cysts. Denies: Hx Peritoneal Dialysis Psychiatric Medical History: Reports: Hx Anxiety, Hx Depression Past Surgical History: Reports: Hx Section - 2008, Hx Orthopedic Surgery - left leg surgery - Immunizations Immunizations up to date: Yes Hx Diphtheria, Pertussis, Tetanus Vaccination: Yes - nov 2008 Vertical Provider Document - CONSTITUTIONAL General Appearance: WD/WN. negative: No Apparent Distress - Patient is anxious and talks rapidly, appears to have been recently crying, however she does not appear to be in distress currently - INFECTION CONTROL TRAVEL OUTSIDE OF THE [place] IN LAST 30 DAYS: No - HEENT HEENT: Atraumatic, Normocephalic. negative: Normal ENT Exam - Normal nasal, sinus, ears, eyes, and pharyngeal exams. See dental exam. There is also some faint soft tissue swelling over the left face, there is no swelling over the neck, no evidence of Dennis's angina Mouth Diagram: 1 - Dental caries, there is erythema extending from this location back towards the posterior aspect of the left upper gumline. There is no noted induration, fluctuance, or other concerning finding. Unremarkable oropharyngeal exam otherwise. No abscess noted. - NECK Neck: Normal Inspection. negative: Lymphadenopathy-Left, Lymphadenopathy-Right - RESPIRATORY Respiratory: Breath Sounds Normal, No Respiratory Distress - CARDIOVASCULAR Cardiovascular: Regular Rate, Regular Rhythm - GI/ABDOMEN Gastrointestinal: Abdomen Soft, Abdomen Non-Tender. negative: Abdomen Tender - BACK Back: Normal Inspection - MUSCULOSKELETAL/EXTREMETIES Musculoskeletal/Extremeties: MAEW, FROM, Non-Tender - NEURO Level of Consciousness: Awake, Alert, Appropriate Motor/Sensory: No Motor Deficit, No Sensory Deficit - DERM Integumentary: Warm, Dry, No Rash Course - Re-evaluation Re-evalutation: On initial exam I thought that there was a tiny abscess with a small fluctuant head, however on further examination this was found to be a particle of possible food, there was no noted abscess, no drainage was required. Exam is consistent with dental infection without additional complication. Starting on antibiotics. Discussed medications, dental follow-up, return precautions. Patient states understanding and agreement. - Vital Signs Vital signs: Temp Pulse Resp BP Pulse Ox 98.4 F 96 22 H 143/92 H 98 05/26/19 22:15 05/26/19 22:15 05/26/19 22:15 05/26/19 22:15 05/26/19 22:15 Discharge - Discharge Clinical Impression: Dental infection, Dental abscess Condition: Stable Disposition: HOME, SELF-CARE Additional Instructions: You have a dental infection. Take the antibiotics as prescribed,, take the pain medication as prescribed only if needed, otherwise take Tylenol and ibuprofen. Follow-up with the dental referral, call to set up your appointment. Return if you worsen including increased swelling of the face or any other concerning or worsening symptoms. [facility] [address], [address] Prescriptions: Amoxicillin Trihydrate [Amoxil 500 mg Capsule] 500 mg PO BID 10 Days #20 capsule Forms: Return to Work
[2019-05-26] MEDS ORDERED: HYDROCODONE/ACETAMINOPHEN 5-325 MG (6 TAB/ER DISP) PO PRN (23:28)
[2019-05-26 23:47] VITALS: BP 135/78
== END 2019-05-26 23:45 | disposition home or self-care (01) ==
LOC: ER 22:10
DX: K04.7 Periapical abscess without sinus (principal); R51 Headache; K08.89 Other specified disorders of teeth and supporting structures; F17.200 Nicotine dependence, unspecified, uncomplicated
CPT/HCPCS: 99282

== ENCOUNTER 2019-07-28 20:06 | Emergency (ER) | payer SELFPAY ==
[2019-07-28 20:12] VITALS: BP 115/69
[2019-07-28] MEDS ORDERED: ACETAMINOPHEN 325 MG TABLET PO ONE (20:42)
[2019-07-28] MEDS ORDERED: AMOXICILLIN TR/POT CLAVULANATE 875-125 MG TAB PO ONE (20:42)
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
== END 2019-07-29 01:12 | disposition left against medical advice (07) ==
LOC: ER 20:06
DX: Z53.29 Procedure and treatment not carried out because of patient's decision for other reasons (principal); S09.90XA Unspecified injury of head, initial encounter; Y09 Assault by unspecified means; Z88.2 Allergy status to sulfonamides
CPT/HCPCS: 99281; J3490

== ENCOUNTER 2019-12-06 20:54 | Emergency (ER) | payer BC ==
--- NOTE | 2019-12-06 21:48 | ER Document Report ---
ED Medical Screen (RME) - General Chief Complaint: Sore Throat Stated Complaint: SORE THROAT,NAUSEA Time Seen by Provider: 12/06/19 21:41 Mode of Arrival: Ambulatory Information source: Patient Notes: HPI; 29-year-old female presents to the emergency room complaining of a sore throat with nausea that started earlier today. Denies any fevers. States she took Pepto-Bismol and ibuprofen with relief. States she needs a note to be able to return to work. Eating and drinking normally. No known COVID-19 exposure. PE: Alert and oriented x3. Lungs: Clear to auscultation without rales, rhonchi, wheezes. Heart: Regular rate rhythm without murmurs, rubs, gallops. I have greeted and performed a rapid initial assessment of this patient. A comprehensive ED assessment and evaluation of the patient, analysis of test results and completion of the medical decision making process will be conducted by additional ED providers. I have specifically instructed the patient or family members with the patient to immediately return to any nursing staff should anything change in the patient's condition or with their chief complaint. TRAVEL OUTSIDE OF THE [place] IN LAST 30 DAYS: No - Related Data Allergies/Adverse Reactions: bee venom protein (honey bee) Allergy (Verified 07/28/19 20:33) Sulfa (Sulfonamide Antibiotics) Allergy (Verified 07/28/19 20:33) Past Medical History Renal/ Medical History: Reports: Hx Ovarian Cysts. Denies: Hx Peritoneal Dialysis Psychiatric Medical History: Reports: Hx Anxiety, Hx Depression Past Surgical History: Reports: Hx Section - 2009, Hx Orthopedic Surgery - left leg surgery - Immunizations Immunizations up to date: Yes Hx Diphtheria, Pertussis, Tetanus Vaccination: Yes - nov 2008
[2019-12-06 22:11] VITALS: BP 118/68
[2019-12-06 22:37] LABS: APPEARANCE,URINE SLIGHTLY-CLOUDY; BILIRUBIN,URINE NEGATIVE (NEGATIVE); COLOR,URINE YELLOW; GLUCOSE, URINE NEGATIVE (NEGATIVE); KETONES,URINE NEGATIVE (NEGATIVE); LEUKOCYTE ESTERASE,URINE NEGATIVE (NEGATIVE); NITRITE,URINE NEGATIVE (NEGATIVE); PROTEIN,URINE 30 mg/dL (NEGATIVE); UROBILINOGEN,URINE NEGATIVE mg/dL (<2.0)
--- NOTE | 2019-12-06 23:17 | ER Document Report ---
HPI - HPI Patient complains to provider of: sore throat Time Seen by Provider: 12/06/19 21:41 Context: 29-year-old female presents to the emergency room complaining of a sore throat, with nausea that started earlier today. States she started to have a scratchy throat and developed some nausea earlier at work today. Denies any fevers. States she took Pepto-Bismol and ibuprofen with relief. States her employer told her she need to be seen in the emergency room before she can return to work. She denies any recent travel. No COVID-19 exposure. No other ill contacts. Eating and drinking normally. Associated Symptoms: None Exacerbated by: Denies Relieved by: Denies Similar symptoms previously: No Recently seen / treated by doctor: No - ROS Systems Reviewed and Negative: Yes All other systems reviewed and negative - CONSTITUTIONAL Constitutional: DENIES: Fever - EENT EENT: REPORTS: Sore Throat - NEURO Neurology: DENIES: Headache, Weakness - GASTROINTESTINAL Gastrointestinal: REPORTS: Nausea. DENIES: Abdominal Pain - REPRODUCTIVE Reproductive: DENIES: : - DERM Skin Color: Normal Skin Problems: None Past Medical History - General Information source: Patient - Social History Smoking Status: Current Every Day Smoker Frequency of alcohol use: Occasional Drug Abuse: None Family History: Arthritis, DM, Other - lupus Renal/ Medical History: Reports: Hx Ovarian Cysts. Denies: Hx Peritoneal Dialysis Psychiatric Medical History: Reports: Hx Anxiety, Hx Depression Past Surgical History: Reports: Hx Section - 2008, Hx Orthopedic Surgery - left leg surgery - Immunizations Immunizations up to date: Yes Hx Diphtheria, Pertussis, Tetanus Vaccination: Yes - nov 2008 Vertical Provider Document - CONSTITUTIONAL Agree With Documented VS: Yes Exam Limitations: No Limitations General Appearance: No Apparent Distress Notes: VITAL SIGNS: Within normal limits. GENERAL: Mild acute distress, non-toxic appearance. HEAD: Normal with no signs of head trauma. EYES: PERRLA, EOMI, conjunctiva normal, no discharge. EARS: Hearing grossly intact. Tympanic membranes intact bilaterally without any erythema or bulging. Bilateral outer nails without erythema or swelling. NOSE: Normal. Turbinates are not erythematous, clear discharge is noted. Sinuses are nontender to palpation. THROAT: Oropharynx is normal. No pharyngeal erythema, no exudate. No tonsillar enlargement. NECK: Normal range of motion, no tenderness, supple, no lymphadenopathy, No adenopathy, no JVD. Negative Meningismus, Negative brudzzinski, Negative Kernig's CHEST: Clear breath sounds bilaterally. No wheezes, rales, or rhonchi. CARDIAC: Regular rate and rhythm. S1 and S2, without murmurs, gallops, or rubs. VASCULAR: No Edema. Peripheral pulses normal and equal in all extremities. ABDOMEN: Normal and soft with no tenderness, no masses or pulsatile masses. GASTROINTESTINAL: Bowel sounds normal GENITOURINARY: Normal, No tenderness LYMPATHTIC: No lymphadenopathy noted. MUSCULOSKELETAL: Good range of motion of all major joints. Extremities without clubbing, cyanosis or edema. NEUROLOGICAL: Alert and oriented x 3. No focal sensory or strength deficits. Speech normal. Follows commands appropriately. PSYCHIATRIC: Normal Affect, judgement and mood. SKIN: Normal appearance with no rashes or lesions. - INFECTION CONTROL TRAVEL OUTSIDE OF THE [place] IN LAST 30 DAYS: No Course - Re-evaluation Re-evalutation: 12/06/19 23:15 Resting comfortably she remains afebrile, nontoxic-appearing, able to tolerate p.o. fluids. Aware of negative strep, negative urine, negative . Patient was counseled on viral illness. Will be notified if her throat culture is positive and will be treated accordingly. Outpatient follow-up with primary care physician if not improving in 2 to 3 days. Patient was provided with on- call physician. Patient was given strict return to the emergency room guidelines. Return for any new or worsening symptoms. All questions were answered. Patient verbalized understanding and agrees with plan of care. 12/06/19 23:32 - Vital Signs Vital signs: Temp Pulse Resp BP Pulse Ox 98.9 F 93 20 118/68 98 12/06/19 22:06 12/06/19 22:06 12/06/19 22:06 12/06/19 22:06 12/06/19 22:06 - Laboratory Laboratory results interpreted by me: 12/06/19 22:06 Urine Protein 30 H Discharge - Discharge Clinical Impression: Sore throat, Nausea Condition: Stable Disposition: HOME, SELF-CARE Instructions: Nausea or Vomiting, Nonspecific ([facility]), Sore Throat ([facility]) Additional Instructions: Push fluids, Tylenol and or Motrin as needed for pain. Follow-up with primary care physician if not improving in 2 to 3 days. Return to the emergency room for any new or worsening symptoms. Forms: Return to Work Referrals: JERMAINE TELLEZ MD [ACTIVE STAFF] - Follow up as needed
== END 2019-12-06 23:25 | disposition home or self-care (01) ==
LOC: ER 20:54
DX: J02.9 Acute pharyngitis, unspecified (principal); R11.0 Nausea; F17.200 Nicotine dependence, unspecified, uncomplicated
CPT/HCPCS: 81001; 81025; 87070; 87880; 99283

== ENCOUNTER 2019-12-22 21:33 | Emergency (ER) | payer BC ==
[2019-12-22 21:56] VITALS: BP 128/80
--- NOTE | 2019-12-22 23:01 | ER Document Report ---
HPI - HPI Patient complains to provider of: Medical clearance Time Seen by Provider: 12/22/19 22:53 Notes: 29-year-old female to the emergency department with complaints of needing a return to work note. She states she needs to go back to work tomorrow. She states that she went to work today and her temperature with a temporal thermometer read at 99.9. She states she has been monitoring her temperature all day long and she has not had anything higher than that. She denies any other symptoms. She denies any chills, chest pain, shortness of breath, cough, loss of taste or smell, sore throat, ear pain, headache, nausea, vomiting, diarrhea, abdominal pain. She states that she has had a Covid swab once and it was negative. That was in September. She states her job is requiring her to be medically cleared prior to coming back to work. She states that she does not need a Covid test for this. - ROS Systems Reviewed and Negative: Yes All other systems reviewed and negative - CONSTITUTIONAL Constitutional: DENIES: Fever, Chills - EENT EENT: DENIES: Sore Throat, Ear Pain, Congestion - NEURO Neurology: DENIES: Headache, Weakness - CARDIOVASCULAR Cardiovascular: DENIES: Chest pain - RESPIRATORY Respiratory: DENIES: Trouble Breathing, Coughing - GASTROINTESTINAL Gastrointestinal: DENIES: Abdominal Pain, Nausea, Patient vomiting, Diarrhea - MUSCULOSKELETAL Musculoskeletal: DENIES: Back Pain, Neck Pain, Swelling - DERM Skin Color: Normal Skin Problems: None Past Medical History - General Information source: Patient - Social History Smoking Status: Current Every Day Smoker Frequency of alcohol use: None Drug Abuse: None Family History: Reviewed & Not Pertinent, Arthritis, DM, Other - lupus Renal/ Medical History: Reports: Hx Ovarian Cysts. Denies: Hx Peritoneal Dialysis Psychiatric Medical History: Reports: Hx Anxiety, Hx Depression Past Surgical History: Reports: Hx Section - 2008, Hx Orthopedic Surgery - left leg surgery - Immunizations Immunizations up to date: Yes Hx Diphtheria, Pertussis, Tetanus Vaccination: Yes - nov 2008 Vertical Provider Document - CONSTITUTIONAL Agree With Documented VS: Yes Exam Limitations: No Limitations General Appearance: WD/WN, No Apparent Distress Notes: retook vital signs heart rate is 101 - INFECTION CONTROL TRAVEL OUTSIDE OF THE [place] IN LAST 30 DAYS: No - HEENT HEENT: Atraumatic, Normocephalic, PERRLA Notes: TMs clear bilaterally. There is no pharyngeal erythema or exudate. There airway is grossly patent. There is no anterior lymphadenopathy. - NECK Neck: Normal Inspection, Supple - RESPIRATORY Respiratory: Breath Sounds Normal, No Respiratory Distress. negative: Rales, Rhonchi, Wheezing - CARDIOVASCULAR Cardiovascular: Regular Rate, Regular Rhythm, No Murmur - GI/ABDOMEN Gastrointestinal: Abdomen Soft, Abdomen Non-Tender, No Organomegaly - BACK Back: Normal Inspection - MUSCULOSKELETAL/EXTREMETIES Musculoskeletal/Extremeties: DARIUS CARREON - NEURO Level of Consciousness: Awake, Alert, Appropriate Motor/Sensory: No Motor Deficit, No Sensory Deficit - DERM Integumentary: Warm, Dry, No Rash Course - Re-evaluation Re-evalutation: Impression: Well adult exam. Patient is not febrile here. She has not had a temperature of 100.4 or greater today. She has no other symptoms and feels completely fine. She states that work does not need a Covid test for her to return. I have offered to swab her but she declines tonight. I have low suspicion for coronavirus infection. Will discharge home - Vital Signs Vital signs: Temp Pulse Resp BP Pulse Ox 97.8 F 111 H 20 128/80 H 97 12/22/19 21:55 12/22/19 21:55 12/22/19 21:55 12/22/19 21:55 12/22/19 21:55 Discharge - Discharge Clinical Impression: Well adult exam Condition: Stable Disposition: HOME, SELF-CARE Additional Instructions: Return if any worsening symptoms. Monitor your temperature for any fevers. Fever is a temperature of 100.4 or greater. Return if you have any cough, sore throat, abdominal pain, nausea. Follow-up with primary care. Forms: Return to Work Referrals: [facility] [Provider Group] - Follow up as needed
== END 2019-12-22 23:00 | disposition home or self-care (01) ==
LOC: ER 21:33
DX: Z03.89 Encounter for observation for other suspected diseases and conditions ruled out (principal); F17.200 Nicotine dependence, unspecified, uncomplicated
CPT/HCPCS: 99281